=== PATIENT | male | born 1965 | race Caucasian/White ===

== ENCOUNTER 2018-05-09 12:42 | Day surgery (SDC) | payer OTHER ==
[2018-05-09] MEDS ORDERED: MIDAZOLAM 1 MG/ML 2 ML INJ ×2 (14:53)
[2018-05-09] MEDS ORDERED: FENTAnyl 50 MCG/ML VIAL (14:53)
== END 2018-05-09 15:38 | disposition home or self-care (01) ==
LOC: GIL 12:42
DX: Z12.11 Encounter for screening for malignant neoplasm of colon (principal); R10.9 Unspecified abdominal pain; R19.4 Change in bowel habit; K25.9 Gastric ulcer, unspecified as acute or chronic, without hemorrhage or perforation; K64.8 Other hemorrhoids; K29.50 Unspecified chronic gastritis without bleeding
CPT/HCPCS: 43239; 88305; 88312